=== PATIENT | female | born 1935 ===

== ENCOUNTER 2020-03-12 16:56 | Inpatient (IN) | payer OTHER ==
[~2020-03-12] VITALS: Ht 157.5 cm; Wt 76.2 kg
[2020-03-12] MEDS ORDERED: HYDRODIURIL12.5 MG (17:12)
[2020-03-12] MEDS ORDERED: ASPIR 8181 MG (17:13)
[2020-03-12] MEDS ORDERED: AVAPRO300 MG (17:13)
[2020-03-12] MEDS ORDERED: SIMVASTATIN20 MG (17:13)
[2020-03-12] MEDS ORDERED: DAFLONEX-XL 11300 MG (17:14)
[2020-03-12] MEDS ORDERED: STOOL SOFTENER50 MG (17:15)
[2020-03-12] MEDS ORDERED: FEOSOL325 MG (17:15)
[2020-03-12] MEDS ORDERED: ATIVAN0.5 M1 (17:16)
[2020-03-12] MEDS ORDERED: AMLODIPINE BESY10 MG (17:16)
[2020-03-12] MEDS ORDERED: MIRTAZAPINE15 M1 (17:16)
--- NOTE | 2020-03-12 17:17 | NUR ---
PTE ALERTA Y ORIENTADA X3, PTE REFIERE QUE PRESENTA HEMOGLOBINA BAJA. CON RESULTADOS DE LABORATORIO EN 8. SE COLOCA PTE EN JHONY Y SE PRESENTA BLAISE A .
--- NOTE | 2020-03-12 17:58 | NUR ---
SE ORIENTA PTE SOBRE TX MEDICO EL CUAL REFIERE ENTENDER,SE LE EXTRAEN MUESTRAS BAJO MEDIDAS ASEPTICAS.SE CANALIZA Y SE COLOCAN FLUIDOS DE MANTENIMIENTO BAJANDO SIN DIFICULTAD.SE OSWALDO TUBOS PILOTOS PARA 2 UNIDADES DE PRBC FRACCIONADAS Y SE LLEVAN A BANCO DE BERENICE APCH.
--- NOTE | 2020-03-12 19:59 | NUR ---
PACIENTE ALERTA Y ORIENTADA EN PERSONA Y LUGAR. SE ORIENTA SOBRE PROCEDIMIENTO A REALIZAR Y REFIERE ENTENDER. SE REALIZA MUESTRA DE LABORATORIO DE [facility] BAJO MEDIDAS ASEPTICAS.
[2020-03-14] MEDS ORDERED: FAMOTIDINE40 MG PO (09:54)
[2020-03-14] MEDS ORDERED: FOLIC ACID1 MG PO (09:54)
[2020-03-14] MEDS ORDERED: SERTRALINE HCL25 MG PO (09:54)
[2020-03-14] MEDS ORDERED: DULCOLAX5 MG (09:55)
[2020-03-14] MEDS ORDERED: PANTOPRAZOLE SO40 MG PO (09:55)
== END 2020-03-26 22:52 | disposition home or self-care (01) | DRG 330 ==
LOC: ER 16:56 → SEC-K 20:08 → MEDI 20:08 → MEDJ 21:09 → SURG 03-21 19:30
PROVIDERS: Surgery; ADMIT Internal Medicine; ATTEND Internal Medicine
PROC: 30233N1 Transfusion of Nonautologous Red Blood Cells into Peripheral Vein, Percutaneous Approach (ICD-10-PCS; 2020-03-12)
PROC: B246ZZZ Ultrasonography of Right and Left Heart (ICD-10-PCS; 2020-03-13)
PROC: BB24ZZZ Computerized Tomography (CT Scan) of Bilateral Lungs (ICD-10-PCS; 2020-03-13)
PROC: BL43ZZZ Ultrasonography of Lower Extremity Tendons (ICD-10-PCS; 2020-03-14)
PROC: 05HY33Z Insertion of Infusion Device into Upper Vein, Percutaneous Approach (ICD-10-PCS; 2020-03-15)
PROC: 3E0F7GC Introduction of Other Therapeutic Substance into Respiratory Tract, Via Natural or Artificial Opening (ICD-10-PCS; 2020-03-16)
PROC: 07BB4ZZ Excision of Mesenteric Lymphatic, Percutaneous Endoscopic Approach (ICD-10-PCS; 2020-03-21)
PROC: 0DTF4ZZ Resection of Right Large Intestine, Percutaneous Endoscopic Approach (ICD-10-PCS; principal; 2020-03-21 13:00)
DX: C18.2 Malignant neoplasm of ascending colon (principal); L03.115 Cellulitis of right lower limb; D50.0 Iron deficiency anemia secondary to blood loss (chronic); I10 Essential (primary) hypertension; I87.2 Venous insufficiency (chronic) (peripheral); I35.0 Nonrheumatic aortic (valve) stenosis; E78.5 Hyperlipidemia, unspecified; N28.89 Other specified disorders of kidney and ureter; K63.89 Other specified diseases of intestine; K57.30 Diverticulosis of large intestine without perforation or abscess without bleeding; M17.11 Unilateral primary osteoarthritis, right knee; M65.861 Other synovitis and tenosynovitis, right lower leg; M11.9 Crystal arthropathy, unspecified; M25.461 Effusion, right knee
CPT/HCPCS: 72196; 74181